=== PATIENT | male | born 1960 | race Caucasian/White ===

== ENCOUNTER → 2016-07-13 | Outpatient (CLI) | payer OTHER ==
[~2016-07-13] MED LIST: COLACE100 MG PO; CUBICIN (NON-F500 MG IV; FEOSOL325 MG PO; K-TAB ER20 MEQ PO; LASIX40 MG PO; LIPITOR20 M1 PO; MIRALAX17 GM PO; MOTRIN600 MG PO; NEURONTIN600 MG PO; NORCO 5-325 TA1 EACH PO; NORVASC2.5 MG PO; OXYCONTIN EXTEN10 MG PO; PERCOCET 5-3251 EACH PO; PROCARDIA XL30 MG PO; RIFADIN, RIMAC300 MG PO; THERAGRAN-M1 TAB PO; TOPROL XL 5050 MG PO; ULTRAM50 MG PO
== END | disposition disaster alternative care site (69) ==
LOC: GRAD 11:00
DX: Z48.89 Encounter for other specified surgical aftercare (principal); Z98.890 Other specified postprocedural states

== ENCOUNTER → 2016-08-17 | Outpatient (CLI) | payer OTHER | END | disposition disaster alternative care site (69) | LOC: GRAD 09:00 | DX: Z47.89 Encounter for other orthopedic aftercare (principal); M54.5 Low back pain; Z98.890 Other specified postprocedural states; M47.816 Spondylosis without myelopathy or radiculopathy, lumbar region ==

== ENCOUNTER → 2017-01-18 | Outpatient (CLI) | payer OTHER ==
[2017-01-18 11:24] LABS: COCAINE NEGATIVE (NEGATIVE); OPIATES NEGATIVE (NEGATIVE)
[2017-01-18 11:25] LABS: AMPHETAMINE NEGATIVE (NEGATIVE); BARBITURATE NEGATIVE (NEGATIVE)
== END | disposition disaster alternative care site (69) ==
LOC: GLAB 10:33
PROVIDERS: Orthopaedic Surgery
DX: G89.29 Other chronic pain (principal); R82.5 Elevated urine levels of drugs, medicaments and biological substances